=== PATIENT | male | born 1995 | race American Indian/Alaskan Native ===

== ENCOUNTER 2022-02-10 03:23 | Observation (INO) | payer SELFPAY ==
[2022-02-10] MEDS ORDERED: SODIUM CHLORIDE 0.9% 500 ML 500 ML IV ONE (03:44)
[2022-02-10 04:27] LABS: Mean Corpuscular HGB Conc 31 % (32-34); Mean Corpuscular Volume 73 fl (84-94); Platelet Count 283 K/mm3 (140-440); Red Blood Count 6.08 M/mm3 (3.65-5.03); Red Cell Distribution Width 12.9 % (13.2-15.2)
[2022-02-10 04:31] LABS: Hematocrit 44.6 % (35.5-45.6); Hemoglobin 13.6 gm/dl (11.8-15.2)
[2022-02-10] MEDS ORDERED: ACETAMINOPHEN 500 MG TAB PO ONE (04:31)
--- NOTE | 2022-02-10 04:32 | XRay Report ---
CHEST 1 VIEW INDICATION / CLINICAL INFORMATION: possible Sepsis. COMPARISON: None available. FINDINGS: SUPPORT DEVICES: None. HEART / MEDIASTINUM: Heart size is within normal limits. Mediastinal contour demonstrates no signific ant abnormality. LUNGS / PLEURA: No significant pulmonary abnormality. BONES: No significant osseous abnormality. ADDITIONAL FINDINGS: No significant additional findings. IMPRESSION: 1. No active cardiopulmonary disease. Signer Name: Sudheer Ponce II, MD Signed: 02/10/2022 4:27 AM Workstation Name: [id number]
[2022-02-10] MEDS ORDERED: SODIUM CHLORIDE 0.9% 1000 ML IV SOLN IV ONE (04:33)
[2022-02-10 04:38] LABS: INR 1.04 (0.87-1.13)
--- NOTE | 2022-02-10 04:41 | Emergency Department Report ---
<DINO AMAYA Sheree - Last Filed: 02/10/22 08:19> - General Chief complaint: Skin/Abscess/Foreign Body Stated complaint: BOIL RT BUTTOCKS/RAPID HEARTBEAT Time Seen by Provider: 02/10/22 03:58 - Related Data Allergies Allergy/AdvReac Type Severity Reaction Status Date / Time No Known Allergies Allergy Verified 02/10/22 03:31 Abscess Boil HPI - HPI Chief Complaint: Skin/Abscess/Foreign Body Stated Complaint: BOIL RT BUTTOCKS/RAPID HEARTBEAT Time Seen by Provider: 02/10/22 03:58 Allergies/Adverse Reactions: Allergies Allergy/AdvReac Type Severity Reaction Status Date / Time No Known Allergies Allergy Verified 02/10/22 03:31 ED Course - Consultations Consultation #1: 02/10/22 08:19 case d/w DR osorio Gen surgeon, she will consult. ED Medical Decision Making - Lab Data Result diagrams: 02/10/22 03:55 02/10/22 03:55 - Radiology Data Radiology results: report reviewed CT PELVIS WITH CONTRAST INDICATION / CLINICAL INFORMATION: Perianal abscess. TECHNIQUE: Axial CT images were obtained through the pelvis after IV contrast. All CT scans at this location are performed using CT dose reduction for ALARA by means of automated exposure control. COMPARISON: None available. FINDINGS: BOWEL: No significant abnormality. APPENDIX: No significant abnormality. PERITONEUM: No free fluid. No free air. No fluid collection. LYMPH NODES: No significant adenopathy. ARTERIES: No significant abnormality. VEINS: No significant abnormality. URINARY BLADDER: No significant abnormality. REPRODUCTIVE ORGANS: No significant abnormality. ADDITIONAL FINDINGS: Partially imaged focal region of increased attenuation surrounding fat stranding within the right buttock measuring 3.3 x 4.2 cm. This abuts the margin of the anus. No obvious fluid collections or intraparenchymal extension. SKELETAL SYSTEM: No significant abnormality. IMPRESSION: 1. Focal area of attenuation right buttock adjacent to the anus compatible with infectious or inflammatory process, no drainable fluid collections on images provided. No intrapelvic extension. - Medical Decision Making Patient signed out to me by treating provider. Patient reports he has had 3 days of right gluteal pain and swelling with drainage x1 day. Patient examined at bedside and has a indurated area to right lower gluteal fold with active drainage. Patient reports that since being in the ER it feels less swollen. CT confirms infection of right gluteal fold extending to anus without notable fluid collection at this time. Patient provided IV clindamycin in the ED. He has received a tetanus shot in the last 10 years. IV insulin given for hyp erglycemia. Patient denies previous history of diabetes possible new onset diabetes suspected. Patient will be admitted to the hospital service for further treatment. General surgery consulted ED Disposition Clinical Impression: Sepsis, Abscess of right buttock, Morbid obesity, Hyperglycemia Disposition: ADMITTED INPATIENT Is pt being admited?: Yes Condition: Stable Time of Disposition: 08:07 (Dr Ngael/hosptialist) <MCKENZIEKAMRANMORALES VÁSQUEZ - Last Filed: 02/10/22 21:07> - General Source: patient Mode of arrival: Ambulatory Limitations: No Limitations - History of Present Illness Initial comments: Patient is a 26-year-old male presenting to ED with complaint of boil to his right buttock the past 3 days. Noted to be febrile and tachycardic in triage. Code sepsis initiated. ED Review of Systems ROS: Stated complaint: BOIL RT BUTTOCKS/RAPID HEARTBEAT Other details as noted in HPI Constitutional: denies: chills, fever Respiratory: denies: cough, shortness of breath, wheezing Cardiovascular: denies: chest pain, palpitations Gastrointestinal: denies: abdominal pain, nausea, diarrhea Genitourinary: denies: urgency, dysuria Musculoskeletal: denies: back pain, joint swelling, arthralgia Skin: lesions Neurological: denies: headache, weakness, paresthesias Psychiatric: denies: anxiety, depression ED Past Medical Hx - Past Medical History Previous Medical History?: Yes Hx Hypertension: Yes Hx Psychiatric Treatment: Yes (SCHIZOPHRENIA, ANXIETY) - Surgical History Past Surgical History?: No - Social History Smoking Status: Never Smoker Substance Use Type: None ED Physical Exam - General Limitations: No Limitations General appearance: alert, in no apparent distress, obese - Head Head exam: Present: atraumatic, normocephalic - Respiratory Respiratory exam: Present: normal lung sounds bilaterally. Absent: respiratory distress - Cardiovascular Cardiovascular Exam: Present: normal rhythm, tachycardia, normal heart sounds - GI/Abdominal GI/Abdominal exam: Present: soft. Absent: distended, tenderness - Rectal Rectal exam: Present: other (Tender area of induration to the inner right gluteal fold with bloody drainage) - Neurological Exam Neurological exam: Present: alert, oriented X3 - Psychiatric Psychiatric exam: Present: normal affect, normal mood - Skin Skin exam: Present: warm, dry ED Course Vital Signs 02/10/22 02/10/22 02/10/22 03:29 03:52 04:01 Temperature 101.0 F H Pulse Rate 134 H 121 H 128 H Respiratory 18 29 H 16 Rate Blood Pressure 141/70 Blood Pressure 166/98 [Left] O2 Sat by Pulse 95 96 Oximetry 02/10/22 02/10/22 02/10/22 04:15 04:31 04:45 Temperature Pulse Rate 104 H 109 H 104 H Respiratory 25 H 23 17 Rate Blood Pressure 141/70 137/74 137/74 Blood Pressure [Left] O2 Sat by Pulse 95 95 93 Oximetry 02/10/22 02/10/22 02/10/22 05:01 05:15 05:31 Temperature 102.5 F H Pulse Rate 102 H 105 H 102 H Respiratory 21 31 H 26 H Rate Blood Pressure 140/67 140/67 151/72 Blood Pressure 151/72 [Left] O2 Sat by Pulse 93 95 96 Oximetry 02/10/22 02/10/22 02/10/22 05:45 06:01 06:16 Temperature Pulse Rate 100 H 116 H 100 H Respiratory 20 23 28 H Rate Blood Pressure 151/72 151/72 137/71 Blood Pressure [Left] O2 Sat by Pulse 96 94 94 Oximetry 02/10/22 02/10/22 02/10/22 06:31 06:45 07:01 Temperature Pulse Rate 101 H 97 H 95 H Respiratory 29 H 21 22 Rate Blood Pressure 137/71 Blood Pressure [Left] O2 Sat by Pulse 95 96 95 Oximetry 02/10/22 09:03 Temperature Pulse Rate 91 H Respiratory 16 Rate Blood Pressure Blood Pressure 152/73 [Left] O2 Sat by Pulse 96 Oximetry ED Medical Decision Making - Lab Data Result diagrams: 02/10/22 03:55 02/10/22 03:55 Critical care attestation.: If time is entered above; I have spent that time in minutes in the direct care of this critically ill patient, excluding procedure time.
[2022-02-10 04:49] LABS: Alanine Aminotransferase 31 units/L (7-56); Albumin 3.6 g/dL (3.9-5); BUN/Creatinine Ratio 9; Blood Urea Nitrogen 10 mg/dL (9-20); Calcium 9.4 mg/dL (8.4-10.2); Hemolysis Index 1
[2022-02-10] MEDS ORDERED: ZIPRASIDONE MESYLATE 20 MG VIAL IM PRN (04:53)
[2022-02-10] MEDS ORDERED: CLINDAMYCIN 600 MG/50 mL 600 MG/50 ML BAG IV SCH (05:00)
--- NOTE | 2022-02-10 06:53 | Cat Scan Report ---
CT PELVIS WITH CONTRAST INDICATION / CLINICAL INFORMATION: Perianal abscess. TECHNIQUE: Axial CT images were obtained through the pelvis after IV contrast. All CT scans at this [facility] are performed using CT dose reduction for ALARA by means of automated exposure control. COMPARISON: None available. FINDINGS: BOWEL: No significant abnormality. APPENDIX: No significant abnormality. PERITONEUM: No free fluid. No free air. No fluid collection. LYMPH NODES: No significant adenopathy. ARTERIES: No significant abnormality. VEINS: No significant abnormality. URINARY BLADDER: No significant abnormality. REPRODUCTIVE ORGANS: No significant abnormality. ADDITIONAL FINDINGS: Partially imaged focal region of increased attenuation surrounding fat stranding within the right buttock measuring 3.3 x 4.2 cm. This abuts the margin of the anus. No obvious fluid collections or intraparenchymal extension. SKELETAL SYSTEM: No significant abnormality. IMPRESSION: 1. Focal area of attenuation right buttock adjacent to the anus compatible with infectious or inflamm atory process, no drainable fluid collections on images provided. No intrapelvic extension. Signer Name: Sudheer Ponce II, MD Signed: 02/10/2022 6:49 AM Workstation Name: [id number]
[2022-02-10] MEDS ORDERED: INSULIN REGULAR, HUMAN 100 UNITS/1 ML IV ONE (06:54)
[2022-02-10 07:07] LABS: Anisocytosis 1+; Basophils % (Manual) 0 % (0.0-1.8); Eosinophils % (Manual) 0 % (0.0-4.3); Platelet Estimate Consistent w Auto; Total Cells Counted 100
[2022-02-10] MEDS ORDERED: ONDANSETRON 4 MG/2 ML INJ IV PRN (09:26)
[2022-02-10] MEDS ORDERED: ACETAMINOPHEN 325 MG TAB PO PRN (09:26)
[2022-02-10] MEDS ORDERED: VANCOMYCIN PHARMACY TO DOSE IV SCH (10:00)
[2022-02-10] MEDS ORDERED: HEPARIN 5,000 UNIT/1 ML VIAL SUB-Q SCH (10:00)
[2022-02-10] MEDS ORDERED: DEXTROSE 50% IN WATER (25GM) 50 ML SYRINGE IV PRN (10:00)
[2022-02-10] MEDS ORDERED: D5W/0.45% NACL 1,000 ML IV SCH (10:00)
[2022-02-10] MEDS: MORPHINE 4 MG/1 ML INJ IV PRN ×2 (10:13→16:19)
[2022-02-10] MEDS: cefTRIAXone/NS 1 GM/50 ML 1 GM/50 ML BAG IV SCH ×2 (10:13→23:04)
[2022-02-10] MEDS: HEPARIN 5,000 UNIT/1 ML VIAL SUB-Q SCH ×2 (10:33→18:13)
--- NOTE | 2022-02-10 10:47 | Electrocardiograph Report ---
[facility] Test Date: 2022-02-10 Test Time: 03:30:40 Pat Name: LAKSHMI CARLSON Department: Room: [place] [address] Gender: M [employer] Machine Operator: MELANY : 1995 Requested By: KAMRAN RINCON Order Number: [id number] Reading MD: Ciro Leone Measurements Intervals Hundred Rate: 122 P: 59 KS: 159 QRS: 34 QRSD: 82 T: 24 QT: 322 QTc: 459 Interpretive Statements Sinus tachycardia Probable left atrial enlargement Septal infarct, age undetermined No previous ECG available for comparison Electronically Signed On 02-10-2022 10:47:19 EDT by Ciro Leone
[2022-02-10] MEDS: INSULIN REGULAR, HUMAN 100 UNITS/1 ML SUB-Q SCH ×3 (11:02→23:05)
[2022-02-10] MEDS: VANCOMYCIN 2,000 MG in SODIUM CHLORIDE 0.9% 500 ML 500 ML IV SCH ×2 (11:08→23:45)
--- NOTE | 2022-02-10 11:46 | History and Physical Report ---
History of Present Illness Date of examination: 02/10/22 Date of admission: 02/10/22 09:26 Chief complaint: Right gluteal pain History of present illness: Patient is a 26-year-old male with past medical history of hypertension, prediabetes, and morbid obesity who presented to the ED after 4-5 days of worsening pain and swelling of the right inner buttock. The patient described the pain getting worse and worse before he experienced purulent drainage from his right buttock that relieve the pain. The patient describes having a history of boils that become abscesses and eventually drained in the past. In the ED, the patient was found to be hemodynamically stable, and labs were remarkable for WBC of 13.8 and a [id number] glucose of 287. Patient had unremarkable lactic acid. In the ED he was initiated on IV clindamycin and IV fluid resuscitation (approximately 6 L). General surgery was consulted for further management. General surgery performed a bedside I&D. Patient was initially started on IV antibiotics. Patient is being admitted for management of right gluteal abscess. Past History Past Medical History: hypertension, other (Prediabetes, obesity) Past Surgical History: tonsillectomy Social history: single, lives with family, full code Family history: diabetes, hypertension Medications and Allergies Allergies Allergy/AdvReac Type Severity Reaction Status Date / Time No Known Allergies Allergy Verified 02/10/22 03:31 Home Medications Medication Instructions Recorded Confirmed Last Taken Type Hydroxyzine HCl [hydrOXYzine] 50 mg PO HS 02/10/22 02/10/22 Unknown History Paliperidone [Invega] 9 mg PO DAILY 02/10/22 02/11/22 Unknown History cloNIDine [Catapres] 0.2 mg PO DAILY 02/10/22 02/10/22 Unknown History Paliperidone Palmitate [Invega 234 mg IM QMONTH 02/11/22 02/11/22 Unknown History Sustenna] Active Meds: Active Medications Acetaminophen (Acetaminophen 325 Mg Tab) 650 mg PO Q4H PRN PRN Reason: Pain MILD(1-3)/Fever >100.5/QUILES Dextrose (Dextrose 50% In Water (25gm) 50 Ml Syringe) 50 ml IV Q30MIN PRN; Protocol PRN Reason: Hypoglycemia Heparin Sodium (Porcine) (Heparin 5,000 Unit/1 Ml Vial) 7,500 unit SUB-Q Q8H ROBERT Last Admin: 02/10/22 10:33 Dose: 7,500 unit Vancomycin HCl 2,000 mg/ (Sodium Chloride) 540 mls @ 333 mls/hr IV Q8H [facility]; Protocol Last Admin: 02/10/22 11:08 Dose: 333 mls/hr Ceftriaxone Sodium (Rocephin/Ns 1 Gm/50 Ml) 1 gm in 50 mls @ 100 mls/hr IV Q12H [facility]; Protocol Last Admin: 02/10/22 10:13 Dose: 100 mls/hr Insulin Human Isoph/Insulin Regular (Insulin Nph/Regular 70/30 Inj) 8 unit SUB- Q BIDDIAB ROBERT Insulin Human Regular (Insulin Regular, Human 100 Units/1 Ml) 0 units SUB-Q ACHS [facility]; Protocol Last Admin: 02/10/22 11:02 Dose: 3 units Morphine Sulfate (Morphine 2 Mg/1 Ml Inj) 2 mg IV Q4H PRN PRN Reason: Pain, Moderate (4-6) Morphine Sulfate (Morphine 4 Mg/1 Ml Inj) 4 mg IV Q4H PRN PRN Reason: Pain , Severe (7-10) Last Admin: 02/10/22 10:13 Dose: 4 mg Ondansetron HCl (Ondansetron 4 Mg/2 Ml Inj) 4 mg IV Q8H PRN PRN Reason: Nausea And Vomiting Sodium Chloride (Sodium Chloride 0.9% 10 Ml Flush Syringe) 10 ml IV BID [facility] Last Admin: 02/10/22 10:02 Dose: 10 ml Sodium Chloride (Sodium Chloride 0.9% 10 Ml Flush Syringe) 10 ml IV PRN PRN PRN Reason: LINE FLUSH Review of Systems All systems: negative Rectal: pain Musculoskeletal: other (Right gluteal swelling) Integumentary: boils Exam - Constitutional Vitals: Temp Pulse Resp BP Pulse Ox 102.5 F H 91 H 16 152/73 96 02/10/22 05:31 02/10/22 09:03 02/10/22 09:03 02/10/22 09:03 02/10/22 09:03 General appearance: Present: no acute distress, well-nourished, obese (Morbidly obese) - EENT Eyes: Present: PERRL, EOM intact ENT: hearing intact, clear oral mucosa, dentition normal - Neck Neck: Present: supple, normal ROM - Respiratory Respiratory effort: normal Respiratory: bilateral: CTA - Cardiovascular Rhythm: regular Heart Sounds: Present: S1 & S2 - Extremities Extremities: no ischemia, pulses intact, pulses symmetrical, No edema, normal temperature, normal color, Full ROM Peripheral Pulses: within normal limits - Abdominal General gastrointestinal: Present: soft, non-tender, non-distended, normal bowel sounds Male genitourinary: Present: deferred - Rectal Rectal Exam: other (Right gluteal abscess actively draining purulent fluid) - Integumentary Integumentary: Present: clear, warm, dry - Musculoskeletal Musculoskeletal: strength equal bilaterally - Psychiatric Psychiatric: appropriate mood/affect, intact judgment & insight, memory intact, cooperative - Neurologic Neurologic: CNII-XII intact, moves all extremities - Allied Health Allied health notes reviewed: nursing Results - Labs CBC & Chem 7: 02/11/22 05:22 02/11/22 05:22 Labs: Laboratory Last Values WBC 13.8 K/mm3 (4.5-11.0) H 02/10/22 03:55 RBC 6.08 M/mm3 (3.65-5.03) H 02/10/22 03:55 Hgb 13.6 gm/dl (11.8-15.2) 02/10/22 03:55 Hct 44.6 % (35.5-45.6) 02/10/22 03:55 MCV 73 fl (84-94) L 02/10/22 03:55 MCH 22 pg (28-32) L 02/10/22 03:55 MCHC 31 % (32-34) L 02/10/22 03:55 RDW 12.9 % (13.2-15.2) L 02/10/22 03:55 Plt Count 283 K/mm3 (140-440) 02/10/22 03:55 Add Manual Diff Complete 02/10/22 03:55 Total Counted 100 02/10/22 03:55 Seg Neuts % (Manual) 84.0 % (40.0-70.0) H 02/10/22 03:55 Band Neutrophils % 0 % 02/10/22 03:55 Lymphocytes % (Manual) 13.0 % (13.4-35.0) L 02/10/22 03:55 Reactive Lymphs % (Man) 0 % 02/10/22 03:55 Monocytes % (Manual) 3.0 % (0.0-7.3) 02/10/22 03:55 Eosinophils % (Manual) 0 % (0.0-4.3) 02/10/22 03:55 Basophils % (Manual) 0 % (0.0-1.8) 02/10/22 03:55 Metamyelocytes % 0 % 02/10/22 03:55 Myelocytes % 0 % 02/10/22 03:55 Promyelocytes % 0 % 02/10/22 03:55 Blast Cells % 0 % 02/10/22 03:55 Nucleated RBC % Not Reportable 02/10/22 03:55 Seg Neutrophils # Man 11.6 K/mm3 (1.8-7.7) H 02/10/22 03:55 Band Neutrophils # 0.0 K/mm3 02/10/22 03:55 Lymphocytes # (Manual) 1.8 K/mm3 (1.2-5.4) 02/10/22 03:55 Abs React Lymphs (Man) 0.0 K/mm3 02/10/22 03:55 Monocytes # (Manual) 0.4 K/mm3 (0.0-0.8) 02/10/22 03:55 Eosinophils # (Manual) 0.0 K/mm3 (0.0-0.4) 02/10/22 03:55 Basophils # (Manual) 0.0 K/mm3 (0.0-0.1) 02/10/22 03:55 Metamyelocytes # 0.0 K/mm3 02/10/22 03:55 Myelocytes # 0.0 K/mm3 02/10/22 03:55 Promyelocytes # 0.0 K/mm3 02/10/22 03:55 Blast Cells # 0.0 K/mm3 02/10/22 03:55 WBC Morphology Not Reportable 02/10/22 03:55 Hypersegmented Neuts Not Reportable 02/10/22 03:55 Hyposegmented Neuts Not Reportable 02/10/22 03:55 Hypogranular Neuts Not Reportable 02/10/22 03:55 Smudge Cells Not Reportable 02/10/22 03:55 Toxic Granulation Not Reportable 02/10/22 03:55 Toxic Vacuolation Not Reportable 02/10/22 03:55 Dohle Bodies Not Reportable 02/10/22 03:55 Pelger-Huet Anomaly Not Reportable 02/10/22 03:55 Renee Rods Not Reportable 02/10/22 03:55 Platelet Estimate Consistent w auto 02/10/22 03:55 Clumped Platelets Not Reportable 02/10/22 03:55 Plt Clumps, EDTA Not Reportable 02/10/22 03:55 Large Platelets Not Reportable 02/10/22 03:55 Giant Platelets Not Reportable 02/10/22 03:55 Platelet Satelliting Not Reportable 02/10/22 03:55 Plt Morphology Comment Not Reportable 02/10/22 03:55 RBC Morphology Not Reportable 02/10/22 03:55 Dimorphic RBCs Not Reportable 02/10/22 03:55 Polychromasia Not Reportable 02/10/22 03:55 Hypochromasia Not Reportable 02/10/22 03:55 Poikilocytosis Not Reportable 02/10/22 03:55 Anisocytosis 1+ 02/10/22 03:55 Microcytosis Not Reportable 02/10/22 03:55 Macrocytosis Not Reportable 02/10/22 03:55 Spherocytes Not Reportable 02/10/22 03:55 Pappenheimer Bodies Not Reportable 02/10/22 03:55 Sickle Cells Not Reportable 02/10/22 03:55 Target Cells Not Reportable 02/10/22 03:55 Tear Drop Cells Not Reportable 02/10/22 03:55 Ovalocytes Not Reportable 02/10/22 03:55 Helmet Cells Not Reportable 02/10/22 03:55 Vitale-Alvarado Bodies Not Reportable 02/10/22 03:55 [place] Rings Not Reportable 02/10/22 03:55 Alicia Cells Not Reportable 02/10/22 03:55 Bite Cells Not Reportable 02/10/22 03:55 Crenated Cell Not Reportable 02/10/22 03:55 Elliptocytes Not Reportable 02/10/22 03:55 Acanthocytes (Spur) Not Reportable 02/10/22 03:55 Rouleaux Not Reportable 02/10/22 03:55 Hemoglobin C Crystals Not Reportable 02/10/22 03:55 Schistocytes Not Reportable 02/10/22 03:55 Malaria parasites Not Reportable 02/10/22 03:55 Roman Bodies Not Reportable 02/10/22 03:55 Hem Pathologist Commnt No 02/10/22 03:55 PT 14.8 Sec. (12.2-14.9) 02/10/22 03:55 INR 1.04 (0.87-1.13) 02/10/22 03:55 VBG pH 7.370 (7.320-7.420) 02/10/22 03:55 Sodium 134 mmol/L (137-145) L 02/10/22 03:55 Potassium 4.0 mmol/L (3.6-5.0) 02/10/22 03:55 Chloride 96.0 mmol/L (98-107) L 02/10/22 03:55 Carbon Dioxide 24 mmol/L (22-30) 02/10/22 03:55 Anion Gap 18 mmol/L 02/10/22 03:55 BUN 10 mg/dL (9-20) 02/10/22 03:55 Creatinine 1.1 mg/dL (0.8-1.3) 02/10/22 03:55 Estimated GFR > 60 ml/min 02/10/22 03:55 BUN/Creatinine Ratio 9 % 02/10/22 03:55 Glucose 346 mg/dL (75-100) H 02/10/22 03:55 POC Glucose 207 mg/dL (70-105) H 02/10/22 10:40 Lactic Acid 1.50 mmol/L (0.7-2.0) 02/10/22 07:25 Calcium 9.4 mg/dL (8.4-10.2) 02/10/22 03:55 Total Bilirubin 0.60 mg/dL (0.1-1.2) 02/10/22 03:55 AST 18 units/L (5-40) 02/10/22 03:55 ALT 31 units/L (7-56) 02/10/22 03:55 Alkaline Phosphatase 88 units/L (35-129) 02/10/22 03:55 Total Protein 8.3 g/dL (6.3-8.2) H 02/10/22 03:55 Albumin 3.6 g/dL (3.9-5) L 02/10/22 03:55 Albumin/Globulin Ratio 0.8 % 02/10/22 03:55 Microbiology: Microbiology 02/10/22 03:49 Peripheral/Venous Blood Culture - Preliminary Culture in Progress 02/10/22 03:55 Peripheral/Venous Blood Culture - Preliminary Culture in Progress Assessment and Plan Assessment and plan: #Right gluteal abscess #Leukocytosis WBC 13.[address] lactic acid CT abdomen and pelvis with contrast revealing "focal area of attenuation right buttock adjacent to the anus compatible with infection or inflammatory process without drainable fluid collection" Status post IV fluid resuscitation with 30mg/kg and IV clindamycin. Discontinuing IV clindamycin and starting vancomycin and Rocephin 1 g every 12 hours. Infectious disease consulted; pending recs. General surgery consulted; pending recs Pending hemoglobin A1c as undiagnosed diabetes could be a precipitating fac tor. Keep patient n.p.o. until general surgery evaluates. #Hyperglycemia/prediabetes Usqvf-nr-lifg glucose 287 Starting NPH 70/30 15 units twice daily + moderate SSI #Hypertension - home medications: Unknown - current medications: Losartan 50 mg daily - SBP goal <160 and DBP goal <90 while inpatient - continue to monitor #Mild protein caloric malnutrition Albumin 3.6 Will initiate dietary supplementation when patient has a diet. #Morbid obesity #Weight loss counseling #Exercise counseling - BMI 57.5 - Counseled patient on the importance of weight loss, incorporating exercise, and dietary changes (lean meats, fresh fruits and vegetables, and water intake). Patient expresses understanding. - Time: +15 min Advance Directives: No VTE prophylaxis?: Chemical Plan of care discussed with patient/family: Yes
[2022-02-10 16:21] LABS: Bilirubin,Urine NEG (Negative); Blood,Urine NEG (Negative); Color,Urine Yellow (Yellow)
[2022-02-10 16:23] LABS: Mucus,Urine FEW /HPF; Protein,Urine >500 mg/dL (Negative)
[2022-02-10] MEDS: INSULIN NPH/REGULAR 70/30 INJ SUB-Q SCH (16:43)
[2022-02-10] MEDS ORDERED: LIDOCAINE (1%) 10 MG/1 ML VIAL 20 ML MDV INFILTRATI ONE (17:57)
--- NOTE | 2022-02-10 18:37 | Consultation ---
History of Present Illness Consult date: 02/10/22 Chief complaint: buttock abscess - History of present illness History of present illness: 26 yo M with hx of morbid obesity who presents to ER with 4-5 days of worsening pain and swelling of his right inner buttock area. Patient states he had cellulitis of the left inner thigh many years ago which felt similar to this. He states that in the last 12 hours, the area of the buttock started to drain and he immediately started to feel relief. The drainage was purulent. The area is now less swollen. W/u in ER included a CT pelvis which showed cellulitis of the inner right buttock/perianal region without drainable collection. Surgery is consulted for eval. Also of note patients glucose was 346 on initial BMP. Patient states he has no known hx of DM. Past History Past Medical History: other (cellulitis/bacteremia) Past Surgical History: No surgical history Social history: no significant social history Family history: no significant family history Medications and Allergies Allergies Allergy/AdvReac Type Severity Reaction Status Date / Time No Known Allergies Allergy Verified 02/10/22 03:31 Active Meds: Active Medications Acetaminophen (Acetaminophen 325 Mg Tab) 650 mg PO Q4H PRN PRN Reason: Pain MILD(1-3)/Fever >100.5/QUILES Dextrose (Dextrose 50% In Water (25gm) 50 Ml Syringe) 50 ml IV Q30MIN PRN; Protocol PRN Reason: Hypoglycemia Heparin Sodium (Porcine) (Heparin 5,000 Unit/1 Ml Vial) 7,500 unit SUB-Q Q8H [facility] Last Admin: 02/10/22 18:13 Dose: 7,500 unit Vancomycin HCl 2,000 mg/ (Sodium Chloride) 540 mls @ 333 mls/hr IV Q8H [facility]; Protocol Last Admin: 02/10/22 11:08 Dose: 333 mls/hr Ceftriaxone Sodium (Rocephin/Ns 1 Gm/50 Ml) 1 gm in 50 mls @ 100 mls/hr IV Q12H [facility]; Protocol Last Admin: 02/10/22 10:13 Dose: 100 mls/hr Insulin Human Isoph/Insulin Regular (Insulin Nph/Regular 70/30 Inj) 8 unit SUB- Q BIDDIAB [facility] Last Admin: 02/10/22 16:43 Dose: 8 unit Insulin Human Regular (Insulin Regular, Human 100 Units/1 Ml) 0 units SUB-Q ACHS [facility]; Protocol Last Admin: 02/10/22 16:13 Dose: 4 units Morphine Sulfate (Morphine 2 Mg/1 Ml Inj) 2 mg IV Q4H PRN PRN Reason: Pain, Moderate (4-6) Morphine Sulfate (Morphine 4 Mg/1 Ml Inj) 4 mg IV Q4H PRN PRN Reason: Pain , Severe (7-10) Last Admin: 02/10/22 16:19 Dose: 4 mg Ondansetron HCl (Ondansetron 4 Mg/2 Ml Inj) 4 mg IV Q8H PRN PRN Reason: Nausea And Vomiting Sodium Chloride (Sodium Chloride 0.9% 10 Ml Flush Syringe) 10 ml IV BID [facility] Last Admin: 02/10/22 10:02 Dose: 10 ml Sodium Chloride (Sodium Chloride 0.9% 10 Ml Flush Syringe) 10 ml IV PRN PRN PRN Reason: LINE FLUSH Review of Systems All systems: negative (10 pt ros performed and negative except for that listed in HPI) Exam Vital Signs Temp Pulse Resp BP Pulse Ox 101.0 F H 134 H 18 166/98 95 02/10/22 03:29 02/10/22 03:29 02/10/22 03:29 02/10/22 03:29 02/10/22 03:29 Narrative exam: Gen; AAOx3. NAD\ ENT: no scleral icterus or conjunctival pallor CV: S1, S2+ Resp: even and unlabored Abd: soft, obese Buttock: Tiny opening in skin of inner right buttock/perianal area draining seropurulent fluid. Mild fluctuance in this area with induration. Mild TTP. Results - Labs 02/10/22 03:55 02/10/22 03:55 Abnormal lab results 02/10/22 02/10/22 02/10/22 Range/Units 03:55 03:55 03:55 WBC 13.8 H (4.5-11.0) K/mm3 RBC 6.08 H (3.65-5.03) M/mm3 MCV 73 L (84-94) fl MCH 22 L (28-32) pg MCHC 31 L (32-34) % RDW 12.9 L (13.2-15.2) % Seg Neuts % (Manual) 84.0 H (40.0-70.0) % Lymphocytes % (Manual) 13.0 L (13.4-35.0) % Seg Neutrophils # Man 11.6 H (1.8-7.7) K/mm3 Sodium 134 L (137-145) mmol/L Chloride 96.0 L (98-107) mmol/L Glucose 346 H (75-100) mg/dL POC Glucose (70-105) mg/dL Hemoglobin A1c 13.6 H (4-6) % Total Protein 8.3 H (6.3-8.2) g/dL Albumin 3.6 L (3.9-5) g/dL Ur Specific [place] (1.003-1.030) 02/10/22 02/10/22 02/10/22 Range/Units 06:41 10:40 Unknown WBC (4.5-11.0) K/mm3 RBC (3.65-5.03) M/mm3 MCV (84-94) fl MCH (28-32) pg MCHC (32-34) % RDW (13.2-15.2) % Seg Neuts % (Manual) (40.0-70.0) % Lymphocytes % (Manual) (13.4-35.0) % Seg Neutrophils # Man (1.8-7.7) K/mm3 Sodium (137-145) mmol/L Chloride (98-107) mmol/L Glucose (75-100) mg/dL POC Glucose 287 H 207 H (70-105) mg/dL Hemoglobin A1c (4-6) % Total Protein (6.3-8.2) g/dL Albumin (3.9-5) g/dL Ur Specific [place] 1.052 H (1.003-1.030) Diabetes panel 02/10/22 02/10/22 Range/Units 03:55 03:55 Sodium 134 L (137-145) mmol/L Potassium 4.0 (3.6-5.0) mmol/L Chloride 96.0 L (98-107) mmol/L Carbon Dioxide 24 (22-30) mmol/L BUN 10 (9-20) mg/dL Creatinine 1.1 (0.8-1.3) mg/dL Glucose 346 H (75-100) mg/dL Hemoglobin A1c 13.6 H (4-6) % Calcium 9.4 (8.4-10.2) mg/dL AST 18 (5-40) units/L ALT 31 (7-56) units/L Alkaline Phosphatase 88 (35-129) units/L Total Protein 8.3 H (6.3-8.2) g/dL Albumin 3.6 L (3.9-5) g/dL Calcium panel 02/10/22 Range/Units 03:55 Calcium 9.4 (8.4-10.2) mg/dL Albumin 3.6 L (3.9-5) g/dL Pituitary panel 02/10/22 Range/Units 03:55 Sodium 134 L (137-145) mmol/L Potassium 4.0 (3.6-5.0) mmol/L Chloride 96.0 L (98-107) mmol/L Carbon Dioxide 24 (22-30) mmol/L BUN 10 (9-20) mg/dL Creatinine 1.1 (0.8-1.3) mg/dL Glucose 346 H (75-100) mg/dL Calcium 9.4 (8.4-10.2) mg/dL Adrenal panel 02/10/22 Range/Units 03:55 Sodium 134 L (137-145) mmol/L Potassium 4.0 (3.6-5.0) mmol/L Chloride 96.0 L (98-107) mmol/L Carbon Dioxide 24 (22-30) mmol/L BUN 10 (9-20) mg/dL Creatinine 1.1 (0.8-1.3) mg/dL Glucose 346 H (75-100) mg/dL Calcium 9.4 (8.4-10.2) mg/dL Total Bilirubin 0.60 (0.1-1.2) mg/dL AST 18 (5-40) units/L ALT 31 (7-56) units/L Alkaline Phosphatase 88 (35-129) units/L Total Protein 8.3 H (6.3-8.2) g/dL Albumin 3.6 L (3.9-5) g/dL - Imaging CT scan - pelvis: report reviewed, image reviewed Assessment and Plan 26 yo M with 1. abscess of right buttock 2. hyperglycemia Plan: 1. Consistent carb diet 2. HbA1C 3. strict glucose control 4. recommend I&D of abscess - will perform at bedside. Consent obtained from patient 5. Abx 6. wound care Thank you, please call with questions.
--- NOTE | 2022-02-10 18:40 | Procedure Note ---
Date of procedure: 02/10/22 Pre-op diagnosis: abscess right buttock Post-op diagnosis: same Procedure: incision and drainage of right buttock abscess Findings: Patient positioned in right lateral decubitus position. Time out performed with RN present. Area prepped with betadine. Local anesthetic infiltrated into skin at intended incision site. 1 cm incision made using 11 blade extending small area of drainage. Minimal additional serosang drainage. Wound probed and all loculations broken up. Cavity measured approximately 3 cm. Wound irrigated and pressure held for hemostasis. Wound packed with 1 piece of 1/4 inch iodoform. Covered with dry gauze. Patient tolerated the procedure well. All sharps disposed of appropriately. Anesthesia: local Surgeon: MERCEDES FROST Estimated blood loss: minimal Pathology: none Condition: stable Disposition: no change (Packing may be removed in am. Patient may be discharged on 10 days of augmentin. May follow up in surgery clinic in 1week)
[2022-02-11] MEDS: MORPHINE 2 MG/1 ML INJ IV PRN ×2 (01:15→10:55)
[2022-02-11] MEDS: HEPARIN 5,000 UNIT/1 ML VIAL SUB-Q SCH ×2 (02:01→11:36)
[2022-02-11] MEDS: VANCOMYCIN 2,000 MG in SODIUM CHLORIDE 0.9% 500 ML 500 ML IV SCH (03:08)
[2022-02-11 05:40] LABS: Basophils % (Auto) 0.5 % (0.0-1.8); Eosinophils # (Auto) 0.2 K/mm3 (0.0-0.4); Eosinophils % (Auto) 2.4 % (0.0-4.3); Hematocrit 39.3 % (35.5-45.6); Hemoglobin 12.1 gm/dl (11.8-15.2); Lymphocytes # (Auto) 2.2 K/mm3 (1.2-5.4); Lymphocytes % (Auto) 21.9 % (13.4-35.0); Mean Corpuscular HGB Conc 31 % (32-34); Mean Corpuscular Volume 73 fl (84-94); Platelet Count 279 K/mm3 (140-440); Red Blood Count 5.36 M/mm3 (3.65-5.03); Red Cell Distribution Width 12.8 % (13.2-15.2)
[2022-02-11 05:53] LABS: BUN/Creatinine Ratio 8; Blood Urea Nitrogen 7 mg/dL (9-20); Calcium 8.7 mg/dL (8.4-10.2); Hemolysis Index 1
[2022-02-11] MEDS: MORPHINE 4 MG/1 ML INJ IV PRN (06:38)
[2022-02-11] MEDS ORDERED: metFORMIN 500 MG TAB PO SCH (08:00)
[2022-02-11] MEDS ORDERED: glipiZIDE 5 MG TAB PO SCH (08:00)
[2022-02-11] MEDS: INSULIN REGULAR, HUMAN 100 UNITS/1 ML SUB-Q SCH ×2 (08:18→13:23)
[2022-02-11] MEDS: INSULIN NPH/REGULAR 70/30 INJ SUB-Q SCH (08:22)
[2022-02-11] MEDS ORDERED: LISINOPRIL 20 MG TAB PO SCH (10:00)
[2022-02-11] MEDS ORDERED: AMOXICILLIN/K CLAV 875/125MG TAB PO SCH (10:00)
[2022-02-11 10:57] VITALS: BP 156/76
--- NOTE | 2022-02-11 11:11 | Discharge Summary ---
Providers - Providers Date of Admission: 02/10/22 09:26 Date of discharge: 02/11/22 Attending physician: RAQUEL YANG MD 02/10/22 08:06 Consult to Physician [CONS] Urgent Comment: Consulting Provider: MERCEDES FROST Physician Instructions: Reason For Exam: right gluteal abscess 02/10/22 09:47 Consult to Physician [CONS] Routine Comment: Consulting Provider: POOL AMEZQUITA Physician Instructions: Reason For Exam: Antibiotic management + R gluteal abscess Primary care physician: MANUEL WALDEN Hospitalization Reason for admission: Right gluteal abscess, leukocytosis Condition: Stable Pertinent studies: Reviewed. Procedures: Bedside I&D by general surgery Hospital course: Patient is a 26-year-old male with past medical history of hypertension, prediabetes, and morbid obesity who presented to the ED after 4-5 days of worsening pain and swelling of the right inner buttock. The patient described the pain getting worse and worse before he experienced purulent drainage from his right buttock that relieve the pain. The patient describes having a history of boils that become abscesses and eventually drained in the past. In the ED, the patient was found to be hemodynamically stable, and labs were remarkable for WBC of 13.8 and a spcxw-pp-phac glucose of 287. Patient had unremarkable lactic acid. In the ED he was initiated on IV clindamycin and IV fluid resuscitation (approximately 6 L). General surgery was consulted for further management. General surgery performed a bedside I&D. Patient was initially started on IV antibiotics but they have since been transitioned to Augmentin 875/125 mg twice daily. Patient was found to have a hemoglobin A1c of 13.6, and he has been counseled about lifestyle changes such as weight loss, incorporating exercise, and dietary changes. The patient will also be referred to a PCP upon discharge. Patient will be discharging home with oral antilipemics with a goal of him following up with his PCP to determine whether insulin would be a more appropriate glycemic. The patient expressed understanding. Patient is medically clear for discharge. Disposition: 01 HOME / SELF CARE / HOMELESS Final Discharge Diagnosis (Prints w/discharge instructions): Right gluteal abscess, newly diagnosed type 2 diabetes mellitus, morbid obesity, hypertension, leukocytosis, mild protein caloric malnutrition Time spent for discharge: 45 min Core Measure Documentation - Palliative Care Palliative Care/ Comfort Measures: Not Applicable - Core Measures Any of the following diagnoses?: none Exam - Constitutional Vitals: Temp Pulse Resp BP Pulse Ox 98.7 F 78 15 156/76 98 02/11/22 04:51 02/11/22 10:55 02/11/22 04:51 02/11/22 10:55 02/11/22 04:51 General appearance: Present: no acute distress, well-nourished, obese - EENT Eyes: Present: PERRL, EOM intact ENT: hearing intact, clear oral mucosa, dentition normal - Neck Neck: Present: supple, normal ROM - Respiratory Respiratory effort: normal Respiratory: bilateral: CTA - Cardiovascular Rhythm: regular Heart Sounds: Present: S1 & S2 - Extremities Extremities: no ischemia, pulses intact, pulses symmetrical, No edema, normal temperature, normal color, Full ROM Peripheral Pulses: within normal limits - Abdominal General gastrointestinal: Present: soft, non-tender, non-distended, normal bowel sounds Male genitourinary: Present: deferred - Rectal Rectal Exam: other (Right gluteal abscess with packing; draining purulent fluid) - Integumentary Integumentary: Present: clear, warm, dry - Musculoskeletal Musculoskeletal: strength equal bilaterally - Psychiatric Psychiatric: appropriate mood/affect, memory intact, cooperative - Neurologic Neurologic: CNII-XII intact, moves all extremities - Allied Health Allied health notes reviewed: nursing Plan Activity: no restrictions Diet: low salt, diabetic Wound: per your surgeon's advice, other (Perform sitz baths twice daily and pat dry) Additional Instructions: Patient is a 26-year-old male with past medical history of hypertension, prediabetes, and morbid obesity who presented to the ED after 4-5 days of worsening pain and swelling of the right inner buttock. The patient described the pain getting worse and worse before he experienced purulent drainage from his right buttock that relieve the pain. The patient describes having a history of boils that become abscesses and eventually drained in the past. In the ED, the patient was found to be hemodynamically stable, and labs were remarkable for WBC of 13.8 and a qpshu-iy-mvtg glucose of 287. Patient had unremarkable lactic acid. In the ED he was initiated on IV clindamycin and IV fluid resuscitation (approximately 6 L). General surgery was consulted for further management. General surgery performed a bedside I&D. Patient was initially started on IV antibiotics but they have since been transitioned to Augmentin 875/125 mg twice daily. Patient was found to have a hemoglobin A1c of 13.6, and he has been counseled about lifestyle changes such as weight loss, incorporating exercise, and dietary changes. The patient will also be referred to a PCP upon discharge. Patient will be discharging home with oral antilipemics with a goal of him following up with his PCP to determine whether insulin would be a more appropriate glycemic. The patient expressed understanding. Patient is medically clear for discharge. Care Plan Goals: Patient is medically clear for discharge. Assessment: Patient is a 26-year-old male with past medical history of hypertension, prediabetes, and morbid obesity who presented to the ED after 4-5 days of worsening pain and swelling of the right inner buttock. The patient described the pain getting worse and worse before he experienced purulent drainage from his right buttock that relieve the pain. The patient describes having a history of boils that become abscesses and eventually drained in the past. In the ED, the patient was found to be hemodynamically stable, and labs were remarkable for WBC of 13.8 and a grtlq-[id number] glucose of 287. Patient had unremarkable lactic acid. In the ED he was initiated on IV clindamycin and IV fluid resuscitation (approximately 6 L). General surgery was consulted for further management. General surgery performed a bedside I&D. Patient was initially started on IV antibiotics but they have since been transitioned to Augmentin 875/125 mg twice daily. Patient was found to have a hemoglobin A1c of 13.6, and he has been counseled about lifestyle changes such as weight loss, incorporating exercise, and dietary changes. The patient will also be referred to a PCP upon discharge. Patient will be discharging home with oral antilipemics with a goal of him following up with his PCP to determine whether insulin would be a more appropriate glycemic. The patient expressed understanding. Patient is medically clear for discharge. Follow up with: MANUEL WALDEN MD [Primary Care Provider] - 7 Days JACE CASTILLO MD [Staff Physician] - 3 Days Forms: Work/School Release Form Prescriptions: Amoxicillin/K Clav Tab [Augmentin 875MG TAB] 1 each PO Q12HR #20 tablet metFORMIN [Glucophage] 1,000 mg PO BIDDIAB #60 tablet glipiZIDE [Glucotrol] 5 mg PO BIDDIAB #60 tablet lisinopriL [Zestril TAB] 40 mg PO BID #30 tablet
--- NOTE | 2022-02-11 14:11 | Consultation ---
History of Present Illness - Reason for Consult Consult date: 02/11/22 - History of Present Illness 26-year-old man past medical history hypertension, prediabetes, morbid obesity presents to the hospital complaining of pain and swelling of the right buttock. This began 5 days prior to admission and was worsening since onset. He also complains of purulent drainage from his right buttock. He is history is of oils and abscesses in the past. Surgery performed a bedside I&D of the abscess. Febrile to 102.5 on admission with a white count of 13.8 that has returned to normal. Blood cultures no growth so far. He is currently on Augmentin. Review of Systems: Bold if positive, otherwise negative General: fevers, chills, rigors HEENT: visual disturbance, diplopia, eye pain Respiratory: cough, sputum, hemoptysis, shortness of breath Cardiovascular: chest pain, syncope Gastrointestinal: nausea, vomiting, diarrhea, abdominal pain Genitourinary: dysuria, hematuria, flank pain Musculoskeletal: neck pain, back pain, joint pain, edema Neurologic: headaches, seizures Hematologic: easy bruising or bleeding Endocrine: night sweats, acute weight loss Skin: rash, jaundice, redness Psychiatric: suicidal, homicidal ideation : Imaging personally reviewed: CT pelvis: Right buttock abscess adjacent to the anus. Past History Past Medical History: hypertension, other (Prediabetes, obesity) Past Surgical History: tonsillectomy Social history: single, lives with family, full code Family history: diabetes, hypertension Medications and Allergies Allergies Allergy/AdvReac Type Severity Reaction Status Date / Time No Known Allergies Allergy Verified 02/10/22 03:31 Home Medications Medication Instructions Recorded Confirmed Last Taken Type Hydroxyzine HCl [hydrOXYzine] 50 mg PO HS 02/10/22 02/10/22 Unknown History Paliperidone [Invega] 9 mg PO DAILY 02/10/22 02/11/22 Unknown History cloNIDine [Catapres] 0.2 mg PO DAILY 02/10/22 02/10/22 Unknown History Amoxicillin/K Clav Tab [Augmentin 1 each PO Q12HR #20 tablet 02/11/22 Unknown Rx 875MG TAB] HYDROcodone/APAP 5-325 [[place] 1 each PO Q6HR PRN #10 tablet 02/11/22 Unknown Rx 5/325] Paliperidone Palmitate [Invega 234 mg IM QMONTH 02/11/22 02/11/22 Unknown History Sustenna] amLODIPine 10 mg PO DAILY #30 tab 02/11/22 Unknown Rx glipiZIDE [Glucotrol] 5 mg PO BIDDIAB #60 tablet 02/11/22 Unknown Rx lisinopriL [Zestril TAB] 40 mg PO BID #30 tablet 02/11/22 Unknown Rx metFORMIN [Glucophage] 1,000 mg PO BIDDIAB #60 tablet 02/11/22 Unknown Rx Active Meds: Active Medications Acetaminophen (Acetaminophen 325 Mg Tab) 650 mg PO Q4H PRN PRN Reason: Pain MILD(1-3)/Fever >100.5/QUILES Amoxicillin/Clavulanate Potassium (Amoxicillin/K Clav 875/125mg Tab) 1 each PO Q12HR [facility]; Protocol Stop: 02/21/22 09:59 Last Admin: 02/11/22 10:55 Dose: 1 each Dextrose (Dextrose 50% In Water (25gm) 50 Ml Syringe) 50 ml IV Q30MIN PRN; Protocol PRN Reason: Hypoglycemia Glipizide (Glipizide 5 Mg Tab) 5 mg PO BIDDIAB [facility] Last Admin: 02/11/22 08:19 Dose: 5 mg Heparin Sodium (Porcine) (Heparin 5,000 Unit/1 Ml Vial) 7,500 unit SUB-Q Q8H [facility] Last Admin: 02/11/22 11:36 Dose: 7,500 unit Insulin Human Isoph/Insulin Regular (Insulin Nph/Regular 70/30 Inj) 8 unit SUB- Q BIDDIAB [facility] Last Admin: 02/11/22 08:22 Dose: 8 unit Insulin Human Regular (Insulin Regular, Human 100 Units/1 Ml) 0 units SUB-Q ACHS [facility]; Protocol Last Admin: 02/11/22 13:23 Dose: 2 units Lisinopril (Lisinopril 20 Mg Tab) 20 mg PO BID [facility] Last Admin: 02/11/22 10:55 Dose: 20 mg Metformin HCl (Metformin 500 Mg Tab) 1,000 mg PO BIDDIAB [facility] Last Admin: 02/11/22 08:18 Dose: 1,000 mg Morphine Sulfate (Morphine 2 Mg/1 Ml Inj) 2 mg IV Q4H PRN PRN Reason: Pain, Moderate (4-6) Last Admin: 02/11/22 10:55 Dose: 2 mg Morphine Sulfate (Morphine 4 Mg/1 Ml Inj) 4 mg IV Q4H PRN PRN Reason: Pain , Severe (7-10) Last Admin: 02/11/22 06:38 Dose: 4 mg Ondansetron HCl (Ondansetron 4 Mg/2 Ml Inj) 4 mg IV Q8H PRN PRN Reason: Nausea And Vomiting Sodium Chloride (Sodium Chloride 0.9% 10 Ml Flush Syringe) 10 ml IV BID [facility] Last Admin: 02/11/22 10:56 Dose: 10 ml Sodium Chloride (Sodium Chloride 0.9% 10 Ml Flush Syringe) 10 ml IV PRN PRN PRN Reason: LINE FLUSH Physical Examination - Physical Exam Narrative exam: Physical Exam: Constitutional: Alert, cooperative. No acute distress Head, Ears, Nose: Normocephalic, atraumatic. External ears, nose normal Eyes: Conjunctivae/corneas clear. No icterus. No ptosis. Neck: Supple, no meningeal signs Oral: dentition fair, no thrush Cardiovascular: S1, S2 normal. Respiratory: Good air entry, clear to auscultation bilaterally GI: Soft, non-tender; bowel sounds normal. No peritoneal signs. Musculoskeletal: Buttock wound dressed Skin: No rash or abscess Hem/Lymphatic: No palpable cervical or supraclavicular nodes. No lymphangitis Psych: Mood ok. Affect normal Neurological: Awake, alert, oriented. No gross abnormality - Constitutional Vitals: Vital Signs Temp Pulse Resp BP Pulse Ox 98.9 F 78 95 H 156/76 98 02/11/22 11:06 02/11/22 11:06 02/11/22 11:06 02/11/22 11:06 02/11/22 04:51 Temperature -Last 24 Hours Temperature 98.9 F Temperature 98.7 F Results - Labs CBC & Chem 7: 02/11/22 05:22 02/11/22 05:22 Labs: Abnormal lab results 02/10/22 02/10/22 02/10/22 Range/Units 03:55 22:58 Unknown RBC (3.65-5.03) M/mm3 MCV (84-94) fl MCH (28-32) pg MCHC (32-34) % RDW (13.2-15.2) % [place] % (Auto) (0.0-7.3) % [place] # (Auto) (0.0-0.8) K/mm3 Sodium (137-145) mmol/L BUN (9-20) mg/dL Glucose (75-100) mg/dL POC Glucose 228 H (70-105) mg/dL Hemoglobin A1c 13.6 H (4-6) % Ur Specific [place] 1.052 H (1.003-1.030) 02/11/22 02/11/22 02/11/22 Range/Units 05:22 05:22 07:41 RBC 5.36 H (3.65-5.03) M/mm3 MCV 73 L (84-94) fl MCH 23 L (28-32) pg MCHC 31 L (32-34) % RDW 12.8 L (13.2-15.2) % [place] % (Auto) 10.0 H (0.0-7.3) % [place] # (Auto) 1.0 H (0.0-0.8) K/mm3 Sodium 135 L (137-145) mmol/L BUN 7 L (9-20) mg/dL Glucose 212 H (75-100) mg/dL POC Glucose 196 H (70-105) mg/dL Hemoglobin A1c (4-6) % Ur Specific [place] (1.003-1.030) 02/11/22 Range/Units 12:21 RBC (3.65-5.03) M/mm3 MCV (84-94) fl MCH (28-32) pg MCHC (32-34) % RDW (13.2-15.2) % [place] % (Auto) (0.0-7.3) % [place] # (Auto) (0.0-0.8) K/mm3 Sodium (137-145) mmol/L BUN (9-20) mg/dL Glucose (75-100) mg/dL POC Glucose 180 H (70-105) mg/dL Hemoglobin A1c (4-6) % Ur Specific [place] (1.003-1.030) Assessment and Plan Cultures: Blood culture no growth so far A/P: 26-year-old man past medical history morbid obesity, prediabetes, hypertension now with #Acute sepsis: Present with fevers leukocytosis on admission, now improved. Secondary to buttock abscess #Right buttock abscess: Status post bedside I&D by general surgery. Doing well. Sepsis has resolved as a result. #Morbid obesity: High risk for future abscesses #Diabetes: Blood sugars during admission up to 287 Recs: -Agree with Augmentin 875/125 mg every 12 hours -Okay to DC with above for 7 days. Thank you for the consult, we will sign off. Please call questions. Luis Davis MD [facility] O: [phone] F: [phone]
== END 2022-02-11 17:00 | disposition home or self-care (01) ==
LOC: ED 03:23 → 3A 09:26
PROVIDERS: ADMIT Student in an Organized Health Care Education/Training Program; ATTEND Student in an Organized Health Care Education/Training Program
DX: A41.9 Sepsis, unspecified organism (principal); L02.31 Cutaneous abscess of buttock; D72.829 Elevated white blood cell count, unspecified; I10 Essential (primary) hypertension; E11.65 Type 2 diabetes mellitus with hyperglycemia; E66.01 Morbid (severe) obesity due to excess calories; E44.1 Mild protein-calorie malnutrition; F41.9 Anxiety disorder, unspecified; F20.9 Schizophrenia, unspecified; Z68.43 Body mass index [BMI] 50.0-59.9, adult; Z90.49 Acquired absence of other specified parts of digestive tract; Z79.899 Other long term (current) drug therapy; Z98.890 Other specified postprocedural states; Z79.4 Long term (current) use of insulin
CPT/HCPCS: 10061; 36415; 71045; 72193; 80048; 80053; 81001; 82140; 82805; 82962; 83036; 85007; 85025; 85610; 87040; 87086; 93005; 96365; 96366; 96367; 96372; 96375; 96376; 99285; G0378; J0696; J1644; J2270; J3370; J7030; J7040; J7502; Q9967; Q0177; J1815